=== PATIENT | female | born 1965 | race Caucasian/White ===

== ENCOUNTER 2025-07-07 12:38 | Outpatient (CLI) | payer OTHER, SELFPAY | END 2025-07-07 12:39 | disposition home or self-care (01) | LOC: AMB 07-09 13:19 | PROVIDERS: Visit Provider Internal Medicine | DX: S29.9XXA Unspecified injury of thorax, initial encounter (principal); V44.6XXA Car passenger injured in collision with heavy transport vehicle or bus in traffic accident, initial encounter; Y92.410 Unspecified street and highway as the place of occurrence of the external cause | CPT/HCPCS: A0425; A0427 ==

== ENCOUNTER 2025-07-07 13:34 | Emergency (ER) | payer OTHER, SELFPAY ==
[2025-07-07] VITALS (16 sets, daily range): BP systolic 97–122; BP diastolic 47–68; PULSE 64–93; RESP 14–18; TEMP 36.5; O2SAT 90–99; BMI 20.9
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
[2025-07-07] MEDS: ONDANSETRON 2 MG/ML inj 4 MG IVP ×2 (14:01→15:52)
[2025-07-07 14:26] LABS: Hematocrit 38.4 % (33.0-51.0); Hemoglobin* 12.5 gm/dL (12.0-16.0); Immature Granulocytes Abs Auto 0.09 K/uL (0.00-0.30); Immature Granulocytes Pct Auto 1.0 %; Lymphocytes Absolute Auto 2.03 K/uL (0.90-2.90); Mean Corpuscular HGB Conc 33 gm/dL (32-36); Mean Corpuscular Hemoglobin 34 pg (26-34); Mean Corpuscular Volume 104 fL (80-100); RDW Coefficient of Variation % 12.3 % (11.5-15.5); Red Blood Count 3.70 m/uL (4.00-5.20); Slide Review Reflex No; White Blood Count* 8.88 K/uL (4.50-11.00)
[2025-07-07 14:42] LABS: Albumin* 4.1 g/dL (3.3-5.0); Chloride* 102 mmol/L (96-114); Potassium* 4.6 mmol/L (3.6-5.1); Sodium* 136 mmol/L (135-149)
[2025-07-07 14:45] LABS: Alanine Aminotransferase* 35 U/L (4-35); Anion Gap 5 mEq/L (7-15); Aspartate Amino Transferase* 43 U/L (12-35); Bilirubin Direct* 0.2 mg/dL (0.0-0.5); Bilirubin Total* 1.0 mg/dL (0.1-1.5); Blood Urea Nitrogen* 19 mg/dL (7-30); Carbon Dioxide* 29 mmol/L (20-32); Creatinine* 1.0 mg/dL (0.5-1.5); Est. Creatinine Clearance* 51.66; Estimated Glomerular Filt Rate 64 ml/min; Glucose* 108 mg/dL (60-115); Total Protein* 7.2 g/dL (6.0-8.3)
[2025-07-07 14:46] LABS: Alkaline Phosphatase* 54 U/L (40-150); Calcium* 9.1 mg/dL (8.4-10.6)
--- OUTSIDE RECORDS SUMMARY | 2025-07-07 14:51 | XMS_ITS | Encounter Summary ---
Author Organization [facility] Address [address] [place] [address] Care Team Providers Care Unhairing Inspector Name Role Phone Ronny Irwin MD Primary Care Provider Unavailabl e Shakeel Oliveira MD Primary Care Provider [phone] Ronny Irwin MD Unavailable Unavailable Shakeel Oliveira MD Unavailable Nga Joel APRN,[place] Primary Care Provider + Encounter Details Date Type Department Care Team (Late st Contact Info) Description 07/25/[address] [address] Social History Tobacco Use Types Packs/Day Years Used Date Smoking Tobacco: Never Assessed Comments Unknown Sex and Gender Information Value Date Recorded Sex Assigned at Not on file Legal Sex Female 12:48 AM PRIVATE SECTOR EXECUTIVE Gender Identity Not on file Sexual Orientation Not on file documented as of this encounter Plan of Treatment Not on file documented as of this encounter Visit Diagnoses Not on filedocumented in this encounter Care Teams Unhairing Inspector Relationship Specialty Start Date End Date Ronny Irwin MD PCP - General Family Medicine 03/11/13 07/03/14 Shakeel Oliveira MD PCP - General Family Medicine 07/04/14 04/16/22 gNa Joel APRN,[place]ODAK [address] [place] [phone] PCP - General Nurse Practitioner Family 04/17/22 Ronny Irwin MD 12/27/17 Shakeel Oliveira MD [place] 12/27/17 documented as of this encounter Additional Source Comments PLEASE NOTE: Replies to this message will not be received.[facility] and [facility]
--- OUTSIDE RECORDS SUMMARY | 2025-07-07 14:51 | XMS_ITS | Encounter Summary ---
Author Organization [facility] Address [address] [place] [address] Care Team Providers Care Fire And Safety Helper Name Role Phone Ronny Irwin MD Primary Care Provider Unavailabl e Shakeel Oliveira MD Primary Care Provider [phone] Ronny Irwin MD Unavailable Unavailable Shakeel Oliveira MD Unavailable Nga Joel APRN,[facility] Primary Care Provider + Encounter Details Date Type Department Care Team (Late st Contact Info) Description 02/15/2003 [place] [phone] Social History Tobacco Use Types Packs/Day Years Used Date Smoking Tobacco: Never Assessed Comments Unknown Sex and Gender Information Value Date Recorded Sex Assigned at Not on file Legal Sex Female 12:48 AM EDUCATIONAL TECHNOLOGY SPECIALIST Gender Identity Not on file Sexual Orientation Not on file documented as of this encounter Plan of Treatment Not on file documented as of this encounter Procedures Procedure Name Priority Date/Time Associated Diagnosis Comments LABS - S 02/15/2003 5:21 PM EDUCATIONAL TECHNOLOGY SPECIALIST documented in this encounter Results * LABS - S (02/15/2003 5:21 PM EDUCATIONAL TECHNOLOGY SPECIALIST) us [facility] [place] PROCEDURE NOTE Final Result documented in this encounter Visit Diagnoses Not on filedocumented in this encounter Care Teams Fire And Safety Helper Relationship Specialty Start Date End Date Ronny Irwin MD PCP - General Family Medicine 03/11/13 07/03/14 Shakeel Oliveira MD PCP - General Family Medicine 07/04/14 04/16/22 Nga Joel, SALESPERSON [place],INSPECTOR MACHINE CUT GLASS [address] [place] [phone] PCP - General Nurse Practitioner Family 04/17/22 Ronny Irwin MD 12/27/17 Shakeel Oliveira MD [place] 12/27/17 documented as of this encounter Additional Source Comments PLEASE NOTE: Replies to this message will not be received.[facility] and [facility]
--- OUTSIDE RECORDS SUMMARY | 2025-07-07 14:51 | XMS_ITS | Clinical Summary ---
Author Organization [facility] Address [address] [place] [address] Care Team Providers Care Upper Doubler Name Role Phone No Ref-Primary, Physician Primary Care Provider Myles De Los Santos MD Unavailable [phone] Allergies Active Allergy Reactions Criticality Noted Date Comments Codeine 01/26/2023 Sulfa Antibiotics 01/26/2023 Medications Cranberry-Vitam in C-Probiotic (AZO CRANBERRY) 250-30 MG TABS Azo Cranberry A ctive estradiol (VAGIFEM) 10 MCG TABS vaginal tablet estradiol 10 mcg vaginal tablet TAKE ONE TABLET BY VAGINAL ROUTE DAILY 1 Active fluticasone (FLONASE) 50 MCG/ACT nasal spray fluticasone propionate 50 mcg/actuation nasal spray,suspension INHALE 2 SPRAYS IN EACH NOSTRIL ONCE DAILY 3 Active fexofenadine (RYDER) 180 MG tablet Take 180 mg by mouth daily Active latanoprost (XALATAN) 0.005 % ophthalmic solution latanoprost 0.005 % eye drops ONE DROP IN EACH EYE AT BEDTIME Active Multiple Vitamin (THERA-TABS) TABS Take 1 tablet by mouth daily Active melatonin 3 MG tablet every 24 hours Activ e omeprazole (PRILOSEC) [address] capsule TAKE ONE CAPSULE BY MOUTH ONCE DAILY BEFORE BREAKFAST 3 Active oxybutynin ER (DITROPAN XL) 10 MG 24 hr tablet oxybutynin chloride ER 10 mg tablet,extended release 24 hr TAKE ONE TABLET BY MOUTH ONCE DAILY 2 Active propranolol ER (INDERAL LA) 120 MG 24 hr capsule Take 120 mg by mouth every morning 3 Active triamcinolone (NASACORT) 55 MCG/ACT nasal aerosol [place] 1-2 sprays in nostril 2 Active estradiol (ESTRACE VAGINAL) 0.1 MG/GM vaginal creamIndication s:Chronic urinary tract infection Place 0.5 g vaginally three times a week 42.5 g 3 3 Active Social History Tobacco Use Types Packs/Day Years Used Date Smoking Tobacco: Never Smokeless Tobacco: Never Tobacco Cessation:Counseling Given: No Adolescent Education Answer Date Record ed Getting School Help Needed Not on file 08/21 Comments Unknown Sex and Gender Information Value Date Recorded Sex Assigned at Not on file Legal Sex Female 8:42 AM RAILROAD SURVEYOR Gender Identity Not on file Sexual Orientation Not on file Last Filed Vital Signs Vital Sign Reading Time Taken Comments Blood Pressure 114/68 01/26/2023 8:06 AM RAILROAD SURVEYOR Pulse - - Temperature - - Respiratory Rate - - Oxygen Saturation - - Inhaled Oxygen Concentration - - Weight 65.1 kg (143 lb 8 oz) 01/26/2023 8:06 AM RAILROAD SURVEYOR Height 162.6 cm (5' 4) 01/26/2023 8:06 AM RAILROAD SURVEYOR Body Mass Index 24.63 01/26/2023 8:06 AM RAILROAD SURVEYOR Plan of Treatment Health Maintenance Due Date Last Done Comments ADVANCE CARE PLANNING 1965 ANNUAL REVIEW OF HM ORDERS 1964 CT COLONOGRAPHY 1965 DIABETES SCREENING 1965 FIT 1965 FLEX SIG 1965 MAMMO SCREENING 1964 sDNA (Cologuard) 1964 COLONOSCOPY 1974 COLORECTAL CANCER SCREENING 1974 HIV SCREENING 1979 HEPATITIS C SCREENING 1982 PAP 1985 DTAP/TDAP/TD VACCINE (1 - Tdap) 1989 LIPID 2004 PNEUMOCOCCAL VACCINE 50+ YEA RS (1 of 1 - PCV) 2014 ZOSTER VACCINE (1 of 2) 2014 YEARLY PREVENTIVE VISIT 06/23/2023 06/23/2022 COVID-19 VACCINE ( - 2023-2 5 season) 2024 PHQ-2 (once per calendar year) 2024 INFLUENZA VACCINE (#1) 2025 08/29/2013 RSV VACCINE (1 - 1-dose 75+ series) 2039 HPV VACCINE (No Doses Required) Completed MENINGITIS VACCINE Aged Out No longer eligible based on patient's age to complete this topic Care Teams Upper Doubler Relationship Specialty Start Date End Date No Ref-Primary, Physician PCP - General 12/30/22 Myles De Los Santos MD [address] [place] [address] Urology 12/30/22
--- OUTSIDE RECORDS SUMMARY | 2025-07-07 14:52 | XMS_ITS | Clinical Summary ---
Author Organization [facility] Address [address] [place] [address] Care Team Providers Care Hairpiece Stylist Name Role Phone Ronny Irwin MD Unavailable Unavailable Shakeel Oliveira MD Unavailable Nga Joel APRN,SOLID STATE TESTER Primary Care Provider + Allergies Active Allergy Reactions Criticality Noted Date Comments Codeine Nausea and / or Vomiting 03/11/2013 Bupivacaine Other High 03/11/2013 Received dose during surgery- heart stopped beating- during moment of staff getting crash cart-heart began beating on its own Sulfa (Sulfonamide Antibiotics) Cough Medium 01/27/2017 Medications estradioL (ESTRACE) 0.01 % (0.1 mg/gram) vaginal CreamIndications :Recurrent UTI,Postmenopaus al urethral atrophy 1 g by vaginal route at bedtime. 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 For 2 doses 1st dose and then second dose 10-14 days later 2 Packet 08/21/2024 Active Active Problems Problem Noted Date Diagnosed Date Chronic urinary tract infection 07/01/2021 Nocturia 08/28/2019 Morning headache 08/28/2019 Gastroesophageal reflux disease 05/17/2018 Insomnia 05/16/2018 Allergic rhinitis 05/16/2018 Benign esophageal stricture 05/16/2018 Female stress incontinence 05/16/2018 H/O hysterectomy for benign disease 01/24/2016 TMJ pain dysfunction syndrome 04/10/2015 HOYOS (headache) 01/30/2015 Migraine with aura 01/30/2015 Neck pain 01/30/2015 Memory difficulties 01/30/2015 Therapeutic drug monitoring 01/30/2015 Resolved Problems Problem Noted Date Diagnosed Date Resolved Date Frequent nocturnal awakening 08/28/2019 04/17/2022 Immunizations Immunization Administration Dates Next Due Influenza Vac, IM, Trivalent (>3 Yrs) 08/29/2013 Family History Medical History Relation Name Comments Diabetes Father type ll Relation Name Status Comments Father Social History Tobacco Use Types Packs/Day Years Used Date Smoking Tobacco: Never Smokeless Tobacco: Never Tobacco Cessation:Counseling Given: Not Answered Alcohol Use Standard Drinks/Week Comments No 0 (1 standard drink = 0.6 oz pur e alcohol) Depression (PHQ-9) Answer Date Recorded Last PHQ-9 Score Not on file 07/06/2024 Thoughts of self harm Not at all 07/06/2024 Intimate Partner Violence Answer Date R ecorded Are you in a relationship wh ere you are physically hurt, threatened and/or made to feel afraid? Unable to assess Comments No Sex and Gender Information Value Date Recorded Sex Assigned at Not on file Legal Sex Female 12:48 AM CHURN OPERATOR Gender Identity Not on file Sexual Orientation Not on file Last Filed Vital Signs Vital Sign Reading Time Taken Comments Blood Pressure 98/72 08/15/2024 7:26 AM CDT Pulse 77 08/15/2024 7:26 AM CDT Temperature 36.9 C (98.5 F) 07/23/2024 3:08 PM CDT Respiratory Rate 18 07/23/2024 3:08 PM CDT Oxygen Saturation 99% 08/15/2024 7:26 AM CDT Inhaled Oxygen Concentration - - Weight 56.9 kg (125 lb 6.4 oz) 08/15/2024 7:26 A M CDT Height 162.6 cm (5' 4) 08/15/2024 7:26 AM CDT Body Mass Index 21.52 08/15/2024 7:26 AM CDT Plan of Treatment Health Maintenance Due Date Last Done Comments HPV Testing 1965 DTaP/Tdap/Td Vaccines (1 - Tdap) 1983 Cervical Cancer Screening 1985 CT Colonography 2009 Fecal Immunochemical DNA Test (FIT-DNA) 2009 Fecal Immunochemical Test (FIT) 2009 Pneumococcal Vaccine (50+ Years) (1 of 1 - PCV) 2014 Varicella Zoster Sequential (1 of 2) 2014 Mammogram Standard 06/15/2018 06/15/2017, 06/25/2014 Colonoscopy 07/21/2022 07/21/2017 Colorectal Cancer Screening 07/21/2022 COVID-19 Vaccine ( season) 2024 Influenza Vaccine (#1) 2025 08/29/2013 Depression Screening 08/02/2025 08/02/2024 Lipids Standard 06/28/2028 06/28/2023, 05/30, 01/01/2021, Additional history exists Respiratory Syncytial Virus (RSV) Vaccine (1 - 1-dose 75+ series) 2039 HIB Vaccines Aged Out No longer eligi ble based on patient's age to complete this topic HIV Screen Discontinued HPV Vaccines Aged Out No longer eligi ble based on patient's age to complete this topic Hepatitis A Vaccines Aged Out No long er eligible based on patient's age to complete this topic Hepatitis B Vaccines Aged Out No long er eligible based on patient's age to complete this topic Hepatitis C Testing Discontinued Meningococcal B Vaccines Aged Out No longer eligible based on patient's age to complete this topic Meningococcal Vaccines Aged Out No lo nger eligible based on patient's age to complete this topic Medical Devices Implanted Type Area Assistant To The [employer] Device Identifier Shelf Expiration Date Model / Serial / Lot Bns Lynx [id number] - [id number] Implanted:Qty: 1 on 01/24/2016 by Demarco Peacock MD at [facility] N/A: Suburethral , Pubo Vaginal [employer] 06/28/2017 [id number] 1 / NA / [id number] Procedures Procedure Name Priority Date/Time Associated Diagnosis Comments LIPID PANEL Routine 06/28/2023 7:46 AM CDT Screening for cholesterol level COLONOSCOPY Routine 07/21/2017 8:31 AM CDT MAMMO SCREEN NIKOLAY 2D Routine 06/15/2017 1 1:45 AM CDT from Last 3 Months or Most Recently Relevant to Health Maintenance Results * (ABNORMAL) LIPID PANEL (06/28/2023 7:46 AM CDT) Cholesterol 255(H) <200 mg/dL 06/28/2023 8:08 PM CDT [facility] Triglycerides 88 30 - 150 mg/dL 06/28/2023 8:08 PM CDT [facility] Cholesterol, LDL (Calculated) 163(H) 0 - 159 mg/dL 06/28/2023 8:08 PM CDT [facility] Cholesterol, HDL 74 >40 mg/dL 06/28/20 23 8:08 PM CDT [facility] Cholesterol, vLDL 18 mg/dL 023 8:08 PM CDT [facility] Fasting Status Yes 06/28/2023 8:08 PM CDT [facility] Blood VENOUS BLOOD / Unknown Venipuncture / Unknown 06/28/2023 7:46 AM CDT 06/28/2023 7:46 AM CDT us Nga Joel APRN,SOLID STATE TESTER LAB CHEMISTRY ORDERABLES Final Result [facility] [address] [place] [address], [place] [phone] * COLONOSCOPY (07/21/2017 8:31 AM CDT) 07/21/2017 8:31 AM CDT Narrative [facility] - 07/21/2017 9:49 AM CDT [facility] Patient Name: Dee Helm Procedure Date: 07/21/2017 8:31 AM Date of : 1965 Admit Type: Outpatient Age: 51 Room: [facility] Gender: Female Note Status: Finalized Attending MD: Quinton Weiner MD Procedure: Colonoscopy Indications: Screening for colorectal malignant neoplasm Providers: Quinton Weiner MD Referring Provider: Shakeel Oliveira MD (Referring MD) Medicines: Midazolam 1 mg IV, Fentanyl 25 micrograms IV, See EGD report. Complications: No immediate complications. Procedure: After I obtained informed consent, the scope was passed under direct vision. Throughout the procedure, the patient's blood pressure, pulse, and oxygen saturations were monitored continuously. The [id number] was introduced through the anus and advanced to the terminal ileum. The colonoscopy was performed without difficulty. The patient tolerated the procedure well. The quality of the bowel preparation was adequate to identify polyps 6 mm and larger in size. Findings: The terminal ileum appeared normal. A few small-mouthed diverticula were found in the entire colon. A diffuse area of moderately melanotic mucosa was found in the entire colon. The retroflexed view of the distal rectum and anal verge was normal and showed no anal or rectal abnormalities. Retroflexion in the right colon was performed. A 4 mm polyp was found in the descending colon. The polyp was sessile. The polyp was removed with a cold biopsy forceps. Resection and retrieval were complete. A 4 mm polyp was found in the recto-sigmoid colon. The polyp was sessile. The polyp was removed with a cold biopsy forceps. Resection and retrieval were complete. No other significant abnormalities were identified in a careful examination of the remainder of the colon. Moderate Sedation: Moderate (conscious) sedation was administered by the endoscopy nurse and supervised by the endoscopist. The following parameters were monitored: oxygen saturation, heart rate, blood pressure, and response to care. Total physician intraservice time was 46 minutes. Impression: - The examined portion of the ileum was normal. - Diverticulosis in the entire examined colon. - Melanotic mucosa in the entire examined colon. - One 4 mm polyp in the descending colon, removed with a cold biopsy forceps. Resected and retrieved. - One 4 mm polyp at the recto-sigmoid colon, removed with a cold biopsy forceps. Resected and retrieved. Recommendation: - Discharge patient to home. - Await pathology results. - Continue present medications. - If the pathology report reveals adenomatous tissue, then repeat the colonoscopy for surveillance in 5 years. - If the pathology report reveals no adenomatous tissue, then repeat the colonoscopy for screening purposes in 10 years. Quinton Weiner MD 07/21/2017 9:48:56 AM This report has been signed electronically. All medications administered and tests ordered during the procedure were at the direction of the provider performing the procedure. Unless otherwise noted, estimated blood loss was minimal, no specimens were obtained, and all proceduralists have been documented. Number of Addenda: 0 Note Initiated On: 07/21/2017 8:31 AM us Shakeel Oliveira MD GI PROCEDURES Final Result [facility] * MAMMO SCREEN NIKOLAY (06/15/2017 11:45 AM CDT) Anatomical Region Laterality Modality Bilateral Mammography 06/15/2017 11:2 7 AM CDT Narrative 06/15/2017 3:11 PM CDT #[id number] - MAMMO SCREEN NIKOLAY BILATERAL DIGITAL SCREENING MAMMOGRAM WITH CAD: 06/15/2017 CLINICAL: Family history of breast cancer. Comparison is made to exams dated: 06/25/2014 mammogram - [facility] and 02/11/2012 mammogram - [facility]. FINDINGS: There are scattered areas of fibroglandular densities in both breasts. Current study was also evaluated with a Computer Aided Detection (CAD) system. No significant masses, calcifications, or other findings are seen in either breast. There has been no significant interval change. IMPRESSION: NEGATIVE There is no mammographic evidence of malignancy. A 1 year screening mammogram is recommended. Dr. Miguel may/penrad:06/15/2017 13:52:32 letter sent: Normal Letter BI-RADS: 1 Negative Procedure Note Miguel Merino MD - 06/15/2017 #[id number] - MAMMO SCREEN NIKOLAY BILATERAL DIGITAL SCREENING MAMMOGRAM WITH CAD: 06/15/2017 CLINICAL: Family history of breast cancer. Comparison is made to exams dated: 06/25/2014 mammogram - [facility] and02/11/2012 mammogram - [facility]. FINDINGS: There are scattered areas of fibroglandular densities in bothbreasts. Current study was also evaluated with a Computer Aided Detection (CAD)system. No significant masses, calcifications, or other findings are seen ineither breast. There has been no significant interval change. IMPRESSION: NEGATIVE There is no mammographic evidence of malignancy. A 1 [address] screening[address] is recommended. Dr. Miguel may/penrad:06/15/2017 13:52:32 letter sent: Normal Letter BI-RADS: 1 Negative us Shakeel Oliveira MD RAD MAMMO Final Result from Last 3 Months or Most Recently Relevant to Health Maintenance Insurance [employer] NONE (Home) NONE (Work) [address] [place] [id number] Care Teams Hairpiece Stylist Relationship Specialty Start Date End Date Nga Joel, ROOTER OPERATOR,SOLID STATE TESTER [address] [place] [phone] PCP - General Nurse Practitioner Family 04/17/22 Ronny Irwin MD 12/27/17 Shakeel Oliveira MD [place] 12/27/17 Additional Source Comments PLEASE NOTE: Replies to this message will not be received.[facility] and [facility]
--- OUTSIDE RECORDS SUMMARY | 2025-07-07 14:52 | XMS_ITS | Referral Summary ---
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 Answer Date of Assessment Author No 06/30/2023 9:16 AM CDT Autumn Nguyen CMA * Are you blind or do you have serious difficulty seeing, even when wearing glasses? Answer Date of Assessment Author No 06/30/2023 9:16 AM CDT Autumn Nguyen CMA * Do you have serious difficulty walking or climbing stairs? Answer Date of Assessment Author No 06/30/2023 9:16 AM CDT Autumn Nguyen CMA * Do you have difficulty dressing or bathing? Answer Date of Assessment Author No 06/30/2023 9:16 AM CDT Autumn Nguyen CMA * Do you have difficulty doing errands alone such as visiting a doctor's office or shopping because of a physical, mental, or emotional condition? Answer Date of Assessment Author No 06/30/2023 9:16 AM CDT Autumn Nguyen CMA Mental Status * Do you have trouble concentrating, remembering, or making decisions because of a physical, mental, or emotional condition? Answer Entry Date Author No 06/30/2023 9:16 AM SOFIYAT Autumn Nguyen CMA Plan of Treatment Not on file Medical Devices Implanted Type Area Pouch Maker Device Identifier Shelf Expiration Date Model / Serial / Lot Bns Lynx [id number] - [id number] Implanted:Qty: 1 on 01/24/2016 by Demarco Peacock MD at [facility] Sling N/A: Suburethral , Pubo Vaginal Mindbloom 06/28/2017 [id number] 1 / NA / [id number] Procedures Procedure Name Priority Date/Time Associated Diagnosis Comments LIPID PANEL Routine 06/28/2023 7:46 AM CDT Screening for cholesterol level COLONOSCOPY Routine 07/21/2017 8:31 AM CDT MAMMO SCREEN NIKOLAY 2D Routine 06/15/2017 1 1:45 AM CDT from Last 3 Months or Most Recently Relevant to Health Maintenance Results * (ABNORMAL) LIPID PANEL (06/28/2023 7:46 AM CDT) Cholesterol 255(H) <200 mg/dL 06/28/2023 8:08 PM CDT [facility] Triglycerides 88 30 - 150 mg/dL 06/28/2023 8:08 PM CDT [facility] Cholesterol, LDL (Calculated) 163(H) 0 - 159 mg/dL 06/28/2023 8:08 PM CDT [facility] Cholesterol, HDL 74 >40 mg/dL 06/28/20 23 8:08 PM CDT [facility] Cholesterol, vLDL 18 mg/dL 023 8:08 PM CDT [facility] Fasting Status Yes 06/28/2023 8:08 PM CDT [facility] Blood VENOUS BLOOD / Unknown Venipuncture / Unknown 06/28/2023 7:46 AM CDT 06/28/2023 7:46 AM CDT us Nga Joel APRN, CNP LAB CHEMISTRY ORDERABLES Final Result [facility] [address] [place] [address], [place] [phone] * COLONOSCOPY (07/21/2017 8:31 AM CDT) 07/21/2017 8:31 AM CDT Narrative [facility] END[facility] - 07/21/2017 9:49 AM CDT [facility] Patient Name: Dee Helm Procedure Date: 07/21/2017 8:31 AM Date of : 1965 Admit Type: Outpatient Age: 51 Room: [facility] Gender: Female Note Status: Finalized Attending MD: Quitnon Weiner MD Procedure: Colonoscopy Indications: Screening for [...] and oxygen saturations were monitored continuously. The [id number] was introduced through the anus and advanced [...] Shakeel Oliveira MD GI PROCEDURES Final Result [facility] * MAMMO SCREEN NIKOLAY (06/15/2017 11:45 AM CDT) Anatomical Region Laterality Modality Bilateral Mammography 06/15/2017 11:2 7 AM CDT Narrative 06/15/2017 3:11 PM CDT #[id number] - MAMMO SCREEN NIKOLAY BILATERAL DIGITAL SCREENING MAMMOGRAM WITH CAD: 06/15/2017 CLINICAL: Family history of breast cancer. Comparison is made to exams dated: 06/25/2014 mammogram - [facility] and 02/11/2012 mammogram - [facility]. FINDINGS: There are scattered areas of [...] Procedure Note Miguel Merino MD - 06/15/2017 #[id number] - MAMMO SCREEN NIKOLAY BILATERAL DIGITAL SCREENING MAMMOGRAM WITH CAD: 06/15/2017 CLINICAL: Family history of breast cancer. Comparison is made to exams dated: 06/25/2014 mammogram - [facility] and02/11/2012 mammogram - [facility]. FINDINGS: There are scattered areas of [...] letter sent: Normal Letter BI-RADS: 1 Negative Shakeel Oliveira MD RAD MAMMO Final Result from Last 3 Months or Most Recently Relevant to Health Maintenance Insurance [employer] NONE (Home) NONE (Work) [address] [place] [id number] Care Teams Tile Helper Relationship Specialty Start Date End Date Nga Joel, STRAW BALER,LEAD FABRICATOR [address] [place] [id number] PCP - General Nurse Practitioner Family 04/17/22 Ronny Irwin MD 12/27/17 Shakeel Oliveira MD [place] 12/27/17 Additional Source Comments PLEASE NOTE: Replies to this message will not be received.[facility] and [facility]
--- OUTSIDE RECORDS SUMMARY | 2025-07-07 14:52 | XMS_ITS | Encounter Summary ---
Author Organization [facility] Address [address] [place] [address] Care Team Providers Care Sample Box Maker Name Role Phone Shakeel Oliveira MD Primary Care Provider [phone] Ronny Irwin MD Unavailable Unavailable Shakeel Oliveira MD Unavailable Nga Joel APRN,STEEL POURER Primary Care Provider + Encounter Details Date Type Department Care Team (Late st Contact Info) Description 02/06/2015 [facility] [address] [place] [id number] Kaleb Contreras MD Social History Tobacco Use Types Packs/Day Years Used Date Smoking Tobacco: Never Alcohol Use Standard Drinks/Week Comments No 0 (1 standard drink = 0.6 oz pur e alcohol) Comments Unknown Sex and Gender Information Value Date Recorded Sex Assigned at Not on file Legal 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 Answer Date of Assessment Author No 01/30/2015 10:35 AM Bear Bravo LPN * Are you blind or do you have serious difficulty seeing, even when wearing glasses? Answer Date of Assessment Author No 01/30/2015 10:35 AM Bear Bravo LPN * Do you have serious difficulty walking or climbing stairs? Answer Date of Assessment Author No 01/30/2015 10:35 AM Bear Bravo LPN * Do you have difficulty dressing or bathing? Answer Date of Assessment Author No 01/30/2015 10:35 AM Bear Bravo LPN * Do you have difficulty doing errands alone such as visiting a doctor's office or shopping because of a physical, mental, or emotional condition? Answer Date of Assessment Author No 01/30/2015 10:35 AM Bear Bravo LPN documented as of this encounter Mental Status * Do you have trouble concentrating, remembering, or making decisions because of a physical, mental, or emotional condition? Answer Entry Date Author Yes 01/30/2015 10:35 AM Bear Bravo LPN documented in this encounter Progress Notes * Kaleb Contreras MD - 02/06/2015 12:00 AM CDT [facility] - CHART NOTE PATIENT: Dee Helm : 1965 AGE: 49 CHART: [id number] DATE OF SERVICE: 02/06/2015 I did an EKG on Dee Helm. It shows sinus bradycardia at 54 beats per minute. It was otherwise normal. We also received some lab work from the [facility]. She had a CBC and chem-8 panel which were basically unremarkable. Her cholesterol was 212, LDL 124, HDL 73. FSH and LH were also done. MD camille Scherer P P Doc #: [id number] cc: Shakeel Oliveira MD documented in this encounter Plan of Treatment Not on file documented as of this encounter Visit Diagnoses Not on filedocumented in this encounter Care Teams Sample Box Maker Relationship Specialty Start Date End Date Shakeel Oliveira MD PCP - General Family Medicine 07/04/14 04/16/22 Nga Joel, [employer] FOUNDER,STEEL POURER [address] [place] [phone] PCP - General Nurse Practitioner Family 04/17/22 Ronny Irwin MD 12/27/17 Shakeel Oliveira MD [place] 12/27/17 documented as of this encounter Additional Source Comments PLEASE NOTE: Replies to this message will not be received.[facility] and [facility]
== END 2025-07-07 16:14 | disposition other institution (70) ==
PROVIDERS: Emergency Provider Family Medicine
DX: S32.019A Unspecified fracture of first lumbar vertebra, initial encounter for closed fracture (principal); V44.6XXA Car passenger injured in collision with heavy transport vehicle or bus in traffic accident, initial encounter; M54.2 Cervicalgia
CPT/HCPCS: 36415; 70450; 71260; 72125; 72128; 72131; 74177; 80048; 80076; 81001; 85025; 93005; 94761; 96374; 96375; 96376; 99285; 99291; G0390; J2405; J3010; Q9967

== ENCOUNTER 2025-07-07 15:43 | Outpatient (CLI) | payer OTHER, SELFPAY | END 2025-07-07 15:44 | disposition home or self-care (01) | LOC: AMB 07-13 11:08 | PROVIDERS: Visit Provider Internal Medicine | DX: S32.010A Wedge compression fracture of first lumbar vertebra, initial encounter for closed fracture (principal) | CPT/HCPCS: A0425; A0427 ==